=== PATIENT | male | born 1985 | race American Indian/Alaskan Native ===

== ENCOUNTER 2017-06-11 09:20 | Emergency (ER) | payer SELFPAY ==
[2017-06-11 09:28] VITALS: BP 113/68
== END 2017-06-11 10:25 | disposition left against medical advice (07) ==
LOC: ED 09:20
DX: R07.89 Other chest pain (principal); Z53.21 Procedure and treatment not carried out due to patient leaving prior to being seen by health care provider
CPT/HCPCS: 93005; 93010